=== PATIENT | male | born 1970 | race Caucasian/White ===

== ENCOUNTER 2023-05-26 10:07 | Outpatient (CLI) | payer BC | END 2023-05-26 10:08 | disposition home or self-care (01) | LOC: MRI 10:07 | PROVIDERS: ATTEND Orthopaedic Surgery | DX: M24.812 Other specific joint derangements of left shoulder, not elsewhere classified (principal); M75.112 Incomplete rotator cuff tear or rupture of left shoulder, not specified as traumatic; S46.912A Strain of unspecified muscle, fascia and tendon at shoulder and upper arm level, left arm, initial encounter; M19.012 Primary osteoarthritis, left shoulder ==